=== PATIENT | female | born 1995 | race Caucasian/White ===

== ENCOUNTER 2018-04-02 18:59 | Emergency (ER) | payer OTHER ==
[~2018-04-02] VITALS: Ht 152.4 cm; Wt 53.3 kg
[2018-04-02 19:06] VITALS: BP 130/84
--- NOTE | 2018-04-02 19:10 | NUR ---
23 Y/O F W/C/O PURULENT DRAINAGE WORSENING LEFT THIGH X 3 DAYS WITH INCREASED REDNESS. PT STATES SHE WAS SEEN OUTSIDE HOSPITAL 03/31/2018 PER PT WAS GIVEN ANTIBIOTIC AND MOTRIN. PT DENIES N/V/D; SKIN IS PINK/WARM/DRY; AAOX4, PERRL, WITH EVEN AND STEADY GAIT; LUNGS CLEAR BL, BREATHING UNLABORED; HR EVEN AND REGULAR, BL PERIPHERAL PULSES PRESENT; BS ACTIVE X4, NO TENDERNESS TO PALPATION, NO HEPATOSPLENOMEGALLY PALPATED, RESONANT TO PERCUSSION; PT DENIES ANY FEVER, CP, SOB, OR COUGH AT THIS TIME; PT STATES 5/10 PAIN AT THIS TIME; VSS; PATIENT POSITIONED FOR COMFORT; HOB ELEVATED; BEDRAILS UP X2; BED DOWN.
[2018-04-02] MEDS ORDERED: SULFAMETH/TRIMETH DS 800/160MG 1 TAB PO ONE (19:40)
[2018-04-02 19:57] VITALS: BP 112/69
== END 2018-04-02 19:57 | disposition home or self-care (01) ==
LOC: MED 18:59
DX: L02.416 Cutaneous abscess of left lower limb (principal); L03.116 Cellulitis of left lower limb; F32.9 Major depressive disorder, single episode, unspecified; F41.9 Anxiety disorder, unspecified
CPT/HCPCS: 99283